=== PATIENT | female | born 1955 | race Caucasian/White ===

== ENCOUNTER → 2016-04-26 | Day surgery (SDC) | payer OTHER ==
[~2016-04-26] VITALS: Ht 160 cm; Wt 59.1 kg
[~2016-04-26] MED LIST: *morphine SULFATE 8 MG/ML PERIprocedure ONLY ONE; CEPH-459 PO; CIPR-9 PO; DO NOT ADM ANY ANTICOAGULANT DRUGS XX PRN; INSULIN HUMAN REGULAR 1,000 UNITS/10 ML VIAL SQ PRN; IOHEXOL 300 MG/ML 50 ML BTL (for RAD DIAG) ONE; LACTATED RINGER'S 1000 ML INJ 1,000 ML ONE; LACTATED RINGER'S 1000 ML IV SCH; LEVO.075 PO; METOPROLOL TARTRATE 25 MG TAB PO PRN; MIDAZOLAM HCL 2 MG/2 ML VIAL ONE; ONDANSETRON HCL 4 MG/2 ML VIAL IV PUSH ONE; ONDANSETRON HCL 4 MG/2 ML VIAL IV PUSH PRN; PERC5TAB12 PO; PHENYLEPH/NS 1000 MCG/10 ML SYR IV ONE; PROBCAP11 PO; PROPOFOL 200 MG/20 ML AMP IV ONE; SODIUM CHLORID 0.9% 500 ML IV SCH; SODIUM CHLORIDE 0.9% INJ 100 ML ONE; [UNRECOGNIZED DRUG - OTHER] PO; ceFAZolin 1,000 MG/NS 100 ML IV SCH; ceFAZolin INJ 1,000 MG VIAL ONE; ePHEDrine/NS 50 MG/5 ML SYR IV ONE; oxyCODONE/ACETAMINOPHEN 5 MG/325 MG TAB PO PRN
[2016-04-26 11:34] VITALS: BP 131/82; PULSE 83; RESP 20; TEMP 97.7; O2SAT 100
--- NOTE | 2016-04-26 11:50 | RADRPT ---
EXAM DATE/TIME: 04/26/2016 11:24 [place] COMPARISON: No previous studies available for comparison. INDICATIONS: Pre-op, lithotripsy. MEDICAL HISTORY: Renal calculi. SURGICAL HISTORY: Hysterectomy. Appendectomy. ENCOUNTER: Initial ACUITY: 1 day PAIN SCORE: 5/10 LOCATION: Left upper extremity FINDINGS: There are multiple left renal calculi. The largest calculus is noted within the lower pole measures 2.4 cm in greatest dimension. Phleboliths are noted within the pelvis. Degenerative changes and sco liosis of the lumbar spine are noted. There is no bowel obstruction or ileus. CONCLUSION: 1. Multiple left renal calculi with the largest measuring 2.4 cm in the lower pole. 2. Degenerative changes and scoliosis of the lumbar spine. 3. No bowel obstruction or ileus. Atul Wu MD on April 26, 2016 at 11:43 Board Certified Radiologist. This report was verified electronically.
[2016-04-26 11:57] LABS: AUTOMATED NEUTROPHIL # 4.1 TH/MM3 (1.8-7.7); BASOPHIL % 0.2 % (0.0-2.0); EOSINOPHIL # 0.1 TH/MM3 (0-0.4); EOSINOPHIL % 1.9 % (0.0-4.0); HEMATOCRIT 39.2 % (35.0-46.0); HEMO FLAGS DIFF FINAL; LYMPH % 30.8 % (9.0-44.0); LYMPHOCYTE # 2.2 TH/MM3 (1.0-4.8); MEAN CORPUSCULAR HEMOGLOBIN 29.8 PG (27.0-34.0); MEAN CORPUSCULAR HGB CONC 34.3 % (32.0-36.0); MONO % 8.8 % (0.0-8.0); NEUT % 58.3 % (16.0-70.0); PLATELET COUNT 202 TH/MM3 (150-450); RED CELL DISTRIBUTION WIDTH 13.6 % (11.6-17.2); WHITE BLOOD COUNT 7.1 TH/MM3 (4.0-11.0)
[2016-04-26 14:35] VITALS: PULSE 76
[2016-04-26 17:00] VITALS: BP 142/77; PULSE 72; RESP 16; TEMP 97.6; O2SAT 99
--- NOTE | 2016-04-26 19:53 | MP ---
cc: SHERICE FIGUEROA MD DATE OF SURGERY: 04/26/2016 INDICATIONS FOR PROCEDURE: This is the case of a pleasant 61 year-old white female with a large 2.5 cm left ureteropelvic junction calculous, who presents today for cystoscopy, left retrograde pyelogram, left ureteral stent placement and shock wave lithotripsy of the stone. PREOPERATIVE DIAGNOSIS: Large 2.5 cm left ureteropelvic junction calculous. POSTOPERATIVE DIAGNOSIS: Large 2.5 cm left ureteropelvic junction calculous. ATTENDING SURGEON: Dr. Figueroa. ANESTHESIA: General. PROCEDURE PERFORMED: 1. Cystoscopy. 2. Left retrograde pyelogram. 3. Left ureteral stent insertion. 4. Extracorporeal shock wave lithotripsy of left ureteropelvic junction calculous. COMPLICATIONS: None. ESTIMATED BLOOD LOSS: None. SPECIMEN: None. OPERATIVE PROCEDURE IN DETAIL The patient was brought to the operating room suite and placed supine on the lithotripsy table. The patient was then placed under general anesthesia. She was then repositioned in the dorsal lithotomy position and prepped and draped in normal sterile fashion. After an appropriate time-out was undertaken, I proceeded with cystoscopic evaluation utilizing the rigid cystoscope with the 20-[place] sheath and 30 degrees lens. Both right and left ureteral orifices were in correct anatomic position. There was clear efflux noted on the right. There was no efflux noted on the left side. There were no bladder mucosal lesions, no calculi, no diverticular formation. I next proceeded with advancing a sensor 0.35 wire up the patient's left ureter. I was able to advance the stone beyond the obstructing ureteropelvic junction calculus and advanced into the mid to upper aspect of the left kidney. A 6-[place] open-ended ureteral catheter was then advanced over the wire and the wire was withdrawn and a left retrograde pyelogram study performed to outline the collecting system. The sensor wire was reintroduced and the open-ended ureteral catheter was next exchanged for a 6-[place], 24-cm long-term double-J stent. The stent was passed under both cystoscopic and fluoroscopic guidance without difficulty. Once the stent was in proper position the trailing string was removed. The bladder was next drained of all irrigant fluid and cystoscope was withdrawn. A 16-[place] 10 cc [place] catheter was next placed and connected to gravity drainage. I then proceeded with the final portion of today's procedures that included shockwave lithotripsy of the large left ureteral pelvic junction stone. The stone was localized with fluoroscopy and subsequent to this the patient received shockwave lithotripsy utilizing the Catheter [employer] Piezolith 3000 device. The patient received a total of 3000 shocks with a maximum power level setting of 20. At the conclusion of the procedure, the stone remained intact and unaffected. The patient tolerated the procedures without complications and was transferred to the PACU in satisfactory condition. MD MARIA ESTHER Mcdaniels/KARLA /2:28 PM /7:49 PM
--- NOTE | 2016-04-26 22:24 | EKG ---
Date Performed: 04/26/2016 Time Performed: 11:56:29 PTAGE: 61 years EKG: Sinus rhythm NORMAL ECG NO PREVIOUS TRACING DOCTOR: Alvarez Garland Interpretating Date/Time 04/26/2016 22:23:20
== END | disposition home or self-care (01) ==
LOC: HSDC 10:36
PROVIDERS: ATTEND Urology
DX: N20.1 Calculus of ureter (principal); Z87.440 Personal history of urinary (tract) infections; M85.80 Other specified disorders of bone density and structure, unspecified site; Z01.818 Encounter for other preprocedural examination; Z01.810 Encounter for preprocedural cardiovascular examination
CPT/HCPCS: 00872; 50590; 74000; 85025; 93005; C1769; J0690; J2250; J2270; J2370; J2405; Q9967; J7120

== ENCOUNTER → 2016-06-13 | Day surgery (SDC) | payer OTHER ==
[~2016-06-13] VITALS: Ht 160 cm; Wt 58.9 kg
[~2016-06-13] MED LIST changes: +*MEPERIDINE 25 MG INJ VIAL PERIprocedural Use ONLY ONE; -*morphine SULFATE 8 MG/ML PERIprocedure ONLY ONE; -DO NOT ADM ANY ANTICOAGULANT DRUGS XX PRN; -INSULIN HUMAN REGULAR 1,000 UNITS/10 ML VIAL SQ PRN; +KETOROLAC TROMETHAMINE 60 MG/2 ML (IM) VIAL IM ONE; +LACTATED RINGER'S 1000 ML INJ 1,000 ML IV ONE; -LACTATED RINGER'S 1000 ML INJ 1,000 ML ONE; -LACTATED RINGER'S 1000 ML IV SCH; -METOPROLOL TARTRATE 25 MG TAB PO PRN; -MIDAZOLAM HCL 2 MG/2 ML VIAL ONE; -PHENYLEPH/NS 1000 MCG/10 ML SYR IV ONE; -SODIUM CHLORID 0.9% 500 ML IV SCH; -ceFAZolin 1,000 MG/NS 100 ML IV SCH; +ePHEDrine/NS 25 MG/5 ML SYR IV ONE; -ePHEDrine/NS 50 MG/5 ML SYR IV ONE
[2016-06-13 09:08] VITALS: BP 126/76; PULSE 70; RESP 16; TEMP 97.9; O2SAT 100
[2016-06-13 09:38] LABS: BASOPHIL % 0.2 % (0.0-2.0); EOSINOPHIL # 0.1 TH/MM3 (0-0.4); EOSINOPHIL % 2.6 % (0.0-4.0); HEMATOCRIT 37.8 % (35.0-46.0); HEMO FLAGS DIFF FINAL; LYMPH % 30.5 % (9.0-44.0); LYMPHOCYTE # 1.6 TH/MM3 (1.0-4.8); MEAN CELL VOLUME 88.1 FL (80.0-100.0); MEAN CORPUSCULAR HEMOGLOBIN 29.3 PG (27.0-34.0); MEAN CORPUSCULAR HGB CONC 33.3 % (32.0-36.0); MONO % 11.2 % (0.0-8.0); NEUT % 55.5 % (16.0-70.0); PLATELET COUNT 209 TH/MM3 (150-450); RED BLOOD COUNT 4.29 MIL/MM3 (4.00-5.30); RED CELL DISTRIBUTION WIDTH 13.2 % (11.6-17.2); WHITE BLOOD COUNT 5.4 TH/MM3 (4.0-11.0)
--- NOTE | 2016-06-13 15:31 | PD.OP ---
Operative Report Date of Surgery: Jun 13, 2016 Preoperative Diagnosis: (1) Renal calculus, left Postoperative Diagnosis: (1) Renal calculus, left Procedure: Cystoscopy, left retrograde pyelogram, left ureteral stent exchange and left ureteroscopy with laser lithotripsy of ureteral and renal calculi Surgeon: Lonnie Figueroa Manager Residential(s): None Operation and Findings: Indication for procedure: Case of a pleasant 61-year-old female with multiple left sided renal calculi who is status post left shockwave lithotripsy that performed only partial fragmentation of her stones. Presents today for further urologic management to include left ureteroscopy with laser lithotripsy. Operative procedure in detail: Patient was brought to the operating suite and placed supine on the OR table. She was then placed and general anesthesia. She was then placed in the dorsal lithotomy position and prepped and draped in normal sterile fashion. Rigid cystoscopy was performed utilizing the 22 [place] sheath and the 30 lens. The previously placed left stent could be seen protruding from the left ureteral orifice. The right ureteral orifice was in correct anatomic position effluxing clear yellow urine. There were no bladder mucosal lesions. I then grasped the distal aspect of the left stent with flexible forceps and removed it. It was carefully inspected to ascertain that no stent fragments were left behind. I next the utilized a 6 [place] open ureteral catheter to perform a left retrograde pyelogram. The patient was noted to have an obstructing stone involving the mid left ureter approximately 8 mm in size. A sensor final 35 wire was advanced through the open-ended catheter negotiate around the stone further advanced into the left renal pelvis. The open-ended catheter was next removed and the flexible ureteroscope was advanced over the wire up to the point of the obstructing stone. The wire was then exchanged for the 200 holmium laser fiber and the stone broken up utilizing the holmium laser. Next several of the larger fragments were retrieved with the 2.4 [place] stone basket and sent off for chemical composition analysis. Next the scope was further advanced up into the left kidney and the remaining 2 cm mid left renal calculus was visualized and subsequently treated with laser lithotripsy. The stone was broken down into multiple small fragments the stone did extend into a calyx with a sharp angle and I was able to break up the stone as much is possible with the laser fiber. The ureteroscope was next withdrawn and the guidewire was backloaded through the cystoscope and the 6 [place] open end ureteral catheter was utilized once again and a repeat retrograde study performed to outline the collecting system. The open-ended catheter was then exchanged for a 6 [place] 24 cm double-J stent under both cystoscopic and fluoroscopic guidance without difficulty. Once the stent was in position the trailing string was removed. An 18 [place] 10 cc Middleton catheter was next placed and connected to gravity drainage. The patient tolerated the procedures without complications and was transferred to the PACU in satisfactory condition. Lonnie Figueroa MD Jun 13, 2016 15:31
[2016-06-13 17:27] VITALS: BP 114/60; PULSE 88; RESP 16; TEMP 97.8; O2SAT 100
== END | disposition home or self-care (01) ==
LOC: HSDC 08:29
PROVIDERS: ATTEND Urology
DX: N20.0 Calculus of kidney (principal)
CPT/HCPCS: 00918; 52356; 74420; 82370; 85025; 88300; C1769; C2617; J0690; J1885; J2175; J2405; J3010; J7120; Q9967